=== PATIENT | female | born 2000 | race Caucasian/White ===

== ENCOUNTER 2018-09-20 07:30 | Inpatient (IN) | payer MEDICAID, SELFPAY ==
[2018-09-20 07:19] VITALS: BMI 28.5
[2018-09-20] MEDS: Lactated Ringers 1,000 ML 50 ML IV ×3 (07:45→11:42)
[2018-09-20 08:02] LABS: Mean Corp Hgb Conc 32.4 g/gl (32-36); Mean Corpuscular Hgb 29.6 pg (27.0-32.0); Mean Corpuscular Volume 91.4 fL (81-99); Mean Platelet Vol. 11.7 fl (6.2-12.0); Platelet Count 156 K/mm3 (150-450); RBC Distribution Width CV 15.6 % (11.6-14.6); RBC Distribution Width SD 52.2 fl (35.1-43.9); Red Blood Count 4.05 M/mm3 (4.2-5.4)
[2018-09-20 08:03] LABS: Scan Indicated on CBC? Y/N NO
--- NOTE | 2018-09-20 08:13 | PCM.HP.OB ---
History Date of Admission: 09/20/18 Final EILEEN: 09/15/18 Gestational age: 40 Weeks and 5 Days History of this : This is a 18 year-old, G [], P [], at 40 weeks gestational age. Allergies No Known Allergies Allergy (Verified 09/20/18 07:21) Home Medications: Home Medications Iron 09/20/18 Tablet 1 tab PO DAILY 09/20/18 Smoking Status: Never smoker Heart Tracin with mod variability, accels TOCO Analysis: Q 2-5 min History Past Pregnancies: Past Pregnancies Delivery Date Name GA/Weeks Outcome Route Weight Infant Gender Labor Length Anesthesia Delivery Location Provider FOB Labs: GBS negative see [facility] H&P Physical Exam General: Alert, Oriented x3 Abdomen: Soft, Non Tender, Non-Distended, Gravid Station: -2 Effacement (%): 80 Assessment/Plan This is a 18 year-old, @ 40&5 in labor Admit to L&D Expectant management GBS negative Pain - epidural when desired EFW less than 4500g, patient with adequate pelvis Routine care
[2018-09-20] MEDS: fentaNYL-bupivacaine (epidural) 100 ML BAG EPIDURAL (09:00)
[2018-09-20] MEDS: Ondansetron 4 MG/2 ML Vial IV (10:11)
--- NOTE | 2018-09-20 10:22 | PCM.PN.BLA ---
Progress Note S: Patient comfortable with epidural O: cvx - 6/80/-2 fhts 135 with mod variability, accels tocos Q2-3 min A&P: continue expectant management
--- NOTE | 2018-09-20 13:33 | PCM.OB.VAG ---
Vaginal Delivery Maternal Presentation: Active Labor Amniotic Membrane Rupture Type: Artificial Amniotic Fluid Description: Clear Final EILEEN: 09/15/18 Gestational age: 40 Weeks and 5 Days Date of Procedure: 09/20/18 Pre-Operative Diagnosis: Labor Post-Operative Diagnosis: Labor Surgery/ Procedure Performed: Spontaneous Vaginal Delivery Type of Anesthesia: Epidural Description of Procedure: Called to room when patient c/c/+2. Patient prepped & draped in stirrups. She pushed to deliver head. Double nuchal cord clamped & cut. With next push shoulders & body delivered easily. placed on maternal abdomen. Placenta delivered with gentle traction. Good uterine tone obtained. Presentation: VASHTI Placenta Disposition: [facility] Cord Vessel Description: 3 Vessels Cord Entanglement: Around neck x 2, tight Estimated Blood Loss: 200ml Infant A gender: Female (1 minute): 8 (5 minute): 9 Episiotomy Description: None Laceration: None Medications given after delivery: IV Pitocin Complications: None
[2018-09-20] MEDS: Oxytocin 30 units/NS 500 ml 30 UNITS/500 ML IV.SOLN 334 UNITS IV (14:00)
[2018-09-20] MEDS: Oxytocin 30 units/NS 500 ml 30 UNITS/500 ML IV.SOLN 167 UNITS IV (14:30)
[2018-09-20] MEDS: Ibuprofen 600 MG Tablet PO (16:45)
[2018-09-20 20:20] VITALS: BP 100/61; PULSE 84; RESP 16; TEMP 36.6; O2SAT 97
[2018-09-21 00:11] VITALS: BP 89/48; PULSE 70; RESP 16; TEMP 36.6; O2SAT 98
[2018-09-21 04:10] VITALS: BP 97/49; PULSE 65; RESP 16; TEMP 36.9; O2SAT 99
[2018-09-21] MEDS: Ibuprofen 600 MG Tablet PO (04:19)
--- NOTE | 2018-09-21 08:41 | DCINST_ITS ---
Discharge Diet: No Restrictions Discharge Activity: Return to Normal Activity, May not drive while taking narcotic pain medications., May Shower May resume sexual activity in: 4-6 weeks Additional Activity Instructions:: Nothing in the vagina for 4-6 weeks. You may return to work/school in 6 weeks. Call your doctor if your incision/area has: Continuous Slow Oozing, Sudden Increased Bleeding, Increased Pain/ Swelling, Increased Redness, Foul Smelling Discharge Call your doctor if you observe: Fever of 101 or Higher, Inability to urinate, Inability to have a bowel movement, Using more than one pad per hour Additional Instructions: If you experience any of the following, contact your healthcare provider. * Bleeding that soaks a pad every hour for 2 hours * Fever 100.4 or higher * Unrelieved incision or abdominal pain * Swelling, redness, discharge or bleeding from your incision or episiotomy site * Your incision begins to separate * Problems urinating (including inability to urinate or burning while urinating). * Visual changes * Severe headache * Flu-like symptoms * Pain or redness in one of both of your breasts * Pain, warmth, tenderness or swelling in your legs, especially the calf area * Frequent nausea and vomiting * Symptoms of depression or anxiety If you experience any of the following, call 911 or go to the nearest Emergency Room. * Chest pain * Problems breathing * Seizure activity * Partial or complete paralysis of a body part, slurred speech, weakness or drooping of the face, or a sudden inability to walk or hold your balance Allergies/Adverse Reactions: Allergies No Known Allergies Allergy (Verified 09/20/18 07:21) Medications to take at Discharge Iron 09/20/18 Tablet 1 tab PO DAILY 09/20/18 Please Follow Up With: Antonella Rice CNM When: Call to make an appointment with your provider at 2 weeks and 6 weeks. If you had elevated Blood Pressure or 4th degree laceration you will need to be seen in 2 weeks. Primary Care Physician: Care Physician,No Primary [Primary Care Provider] - Test Results: Test results from this visit will be discussed in further detail at your follow- up appointment, if applicable. Proposed Discharge Date: 09/21/18
--- NOTE | 2018-09-21 08:41 | PCM.PN.OB ---
Subjective: Patient laying down in bed, denies any issues or concerns at this time. Patient reports no issues with urination or ambulation. Denies LUU, scotoma or dizziness. Reports desire to be discharged to home today. Objective: Nipples without cracks, blisters. Breasts soft and filling. Abdomen NT x 4 quadrants, FF midline @ umbilicus +2/4 reflexes in LE, no edema noted, negative calf tenderness BL scant rubra lochia, perineum well approximated - Physical Exam General: Alert, Oriented x3, Cooperative HEENT: Atraumatic, Normocephalic Neck: Supple Lungs: Clear to auscultation, Normal air movement Cardiovascular: Regular rate, No murmurs Abdomen: Soft, Non Tender, Non-Distended Extremities: No edema, Capillary Refill Less than 3 Seconds Skin: No rashes, No breakdown Musculoskeletal: No Tenderness to Palpation of Joints or Extremities Neurological: Cranial nerves II-XII grossly intact Psych/Mental Status: Normal Affect, Appropriate Vital Signs Temp Pulse Resp BP Pulse Ox 98.4 F 65 16 97/49 L 99 09/21/18 04:10 09/21/18 04:10 09/21/18 04:10 09/21/18 04:10 09/21/18 04:10 Oxygen Delivery Method Room Air Weight: 161 lb 6 oz Body Mass Index (BMI) 28.5 Intake and Output for Last 24 Hours 09/19/18 09/20/18 09/21/18 23:59 23:59 23:59 Output Total 1000 / 1000 Balance -1000 / -1000 Laboratory Tests Past 24 Hrs 09/20/18 07:45 Blood Type O POSITIVE Antibody Screen NEGATIVE Medical Necessity - Tobacco Use Smoking Status: Never smoker Assessment/Plan 18 y/o now, s/p , PPD #1, Normal PP Course P: 1) Discharge to home pending discharge 2) Anticipatory PP teaching done 3) RTC in 2 weeks and 6 week PP to [facility] Antonella BELL
[2018-09-21 09:00] VITALS: BP 106/70; PULSE 70; RESP 18; TEMP 36.6
[2018-09-21 12:55] VITALS: BP 100/64; PULSE 77; RESP 18; TEMP 36.2
--- NOTE | 2018-09-21 15:30 | CASEMGMT ---
Social Work Brief Assessment - Labor and Delivery Unit Refer documentation below for further details. Date of Referral/Notification: 09/20/2018 Time of Referral: 1818 Referred By: Dr. Bishop Reason for Referral: maternal history of depression Date of Intervention: 09-21-18 Time of Intervention: 1530 Informant: Medical record and mother of baby (MOB) Evelyne Barraza History: MOB is a 18-year-old female admitted and delivered a baby girl, Raj Barraza. MOB is g2, p1 to 2 after delivering Raj. [place] baby weighed 7 pounds 6 ounces a , ?s 8 and 9 at 1 and 5 minutes of life. Father of baby (FOB) is Bashir Ruff, MOB?s of 1 year. FOB is not the biological father to MOB?s oldest child, a daughter named Barbara (born 02[birth year]18[birth year]16). MOB reports Barbara?s father is not involved. care is reported to have started in [place] at 10 weeks gestation. MOB and FOB back to [facility] and MOB started care in [place] at 21 weeks gestation. MOB reports to have all needed supplies for baby including car seat, bassinet for sleeping, diapers, wipes, bottles and formula. MOB reports home situation is safe and adequate, denies any safety concerns in the home, as well as denies any form of abuse in relationship with FOB. MOB reports to have transportation, connected with [facility] and has an appointment on Monday09-26-18. MOB has food and medical through [facility]. MOB denies past or present with children services in [place] or [place]. MOB does endorse history of depression and depression, no medication or treatment for such and report this lasted a short time. MOB denies any history of suicidal ideation. MOB denies any history of drug or alcohol use in , nor any history of substance use issues outside of . No drug screens found in parental record, nor at delivery. Assessment: MOB cooperative with social work visit, affect constricted, answers to the point though polite. MOB attentive to baby and reports to hope to go home today. MOB reports to have needed supplies, FOB will be home from work for the weekend and then MOB?s and FOB?s families are available to help as needed. MOB accepting of information on Early Head start program; declines referral to [facility]. MOB denies any needs or concerns for home going, reports to feel good about this baby. MOB attentive to baby during social work visit, gentle and appropriate. No concerns voiced by nursing staff regarding mother/child interaction. MOB aware of safe sleeping, shaken baby prevention, and depression. Educated importance of self-care and seeking out help and support should symptoms arise after home going. Plan: MOB and baby to home. MOB has been given information on depression including local and online supports. [facility] secondary social studies teacher resource list provided as well. No further needs requested or indicated. -GEN Hdez, MANAGER REVENUE
--- NOTE | 2018-10-01 12:23 | NURSING ---
1230 Called Evelyne but not available and no voicemail in place to leave a message. Davon MUNOZ IBCLC
--- OUTSIDE RECORDS SUMMARY | 2018-11-24 19:26 | XMS RPT_ITS ---
:2000 Author Organization OHIP Care Team Providers Name Role Phone RODOLFO DIALLO (CNM) Attending Unavailable DUOGLAS KOHLI Attending Unavailable CATE SCRUGGS Referring Unavailable ANNABEL, ANTONELLA (CNM) Attending Unavailable ANNABEL, ANTONELLA (CNM) Attending Unavailable ANNABEL, ANTONELLA (CNM) Referring Unavailable ANNABEL, ANTONELLA (CNM) Referring Unavailable ANNABEL, ANTONELLA (CNM) Attending Unavailable ANNABEL, ANTONELLA (CNM) Attending Unavailable ANNABEL, ANTONELLA (CNM) Attending Unavailable ANNABEL, ANTONELLA (CNM) Referring Unavailable ANNABEL, ANTONELLA (CNM) Attending Unavailable ANNABEL, ANTONELLA (CNM) Attending Unavailable ANNABEL, ANTONELLA (CNM) Attending Unavailable ANNABEL, ANTONELLA (CNM) Attending Unavailable ANNABEL, ANTONELLA (CNM) Attending Unavailable ANNABEL, ANTONELLA (CNM) Attending Unavailable Primay Care Physicia, No Primary Care Unavailable Sandeep Fisher Admitting Unavailable Sandeep Fisher Attending Unavailable Sandeep Fisher Referring Unavailable Alison Ca Admitting Unavailable Alison Ca Attending Unavailable Alison Ca Referring Unavailable Primay Care Physicia, No Primary Care Unavailable PROBLEMS PROBLEMS DATE TYPE CONDITION / CODE ATTENDING STATUS SOURCE 07/23/2018 Active Anemia NA Active [facility] complicating [facility] , third Repository trimester / O99.013(ICD-10) 06/11/2018 Active 26 weeks gestation NA Active [facility] of / [facility] Z3A.26(ICD-10) Repository 06/11/2018 Active Encounter for NA Active [facility] screening for [facility] diabetes mellitus Repository / Z13.1(ICD-10) PROCEDURES PROCEDURES No Procedure Records FoundRESULTS RESULTS DISCHARGE INSTRUCTION Observed: 09/21/2018 Status: F Source: [place] 8:41 AM [facility] REPOSITORY [facility] Medical Records Department [address] [place] [address] Instructions for Home/Discharge Instructions 09/21/18 0840 MR#: [id number] Acct: [id number] Name: LANCE BARRAZA Rep #: [id number] : 2000 From: Antonella Rice CNM PCP: Care Physician, No Primary Status: ADM IN Discharge Diet: No Restrictions Discharge Activity: Return to Normal Activity, May not drive while taking narcotic pain medications., May Shower May resume sexual activity in: 4-6 weeks Additional Activity Instructions:: Nothing in the vagina for 4-6 weeks. You may return to work/school in 6 weeks. Call your doctor if your incision/area has: Continuous Slow Oozing, Sudden Increased Bleeding, Increased Pain/ Swelling, Increased Redness, Foul Smelling Discharge Call your doctor if you observe: Fever of 101 or Higher, Inability to urinate, Inability to have a bowel movement, Using more than one pad per hour Additional Instructions: If you experience any of the following, contact your healthcare provider. * Bleeding that soaks a pad every hour for 2 hours * Fever 100.4 or higher * Unrelieved incision or abdominal pain * Swelling, redness, discharge or bleeding from your incision or episiotomy site * Your incision begins to separate * Problems urinating (including inability to urinate or burning while urinating). * Visual changes * Severe headache * Flu-like symptoms * Pain or redness in one of both of your breasts * Pain, warmth, tenderness or swelling in your legs, especially the calf area * Frequent nausea and vomiting * Symptoms of depression or anxiety If you experience any of the following, call 911 or go to the nearest Emergency Room. * Chest pain * Problems breathing * Seizure activity * Partial or complete paralysis of a body part, slurred speech, weakness or drooping of the face, or a sudden inability to walk or hold your balance Allergies/Adverse Reactions: Allergies No Known Allergies Allergy (Verified 09/20/18 07:21) Medications to take at Discharge Iron 09/20/18 Tablet 1 tab PO DAILY 09/20/18 Please Follow Up With: Antonella Rice CNM When: Call to make an appointment with your provider at 2 weeks and 6 weeks. If you had elevated Blood Pressure or 4th degree laceration you will need to be seen in 2 weeks. Primary Care Physician: Care Physician,No Primary [Primary Care Provider] - Test Results: Test results from this visit will be discussed in further detail at your follow-up appointment, if applicable. Proposed Discharge Date: 09/21/18 09/21/18 0841 <Electronically signed by Antonella Rice CNM> Date Antonella Rice CNM CC: No Primary Care Physician Signed PROGRESS Observed: 09/20/2018 Status: COMPLETED Source: [place] 4:23 PM [facility] REPOSITORY O ID: [id number] Author: Trina Diaz LPN Service: (none) Author Type: (none) Type: Progress Notes Filed: 09/20/2018 4:24 PM Note Text: Pt delivered via at [facility] on 09/20/[address] Fisher. See Ob Outcome note. Trina Diaz LPN OPERATIVE REPORT Observed: 09/20/2018 Status: F Source: [place] 2:10 PM [facility] REPOSITORY [facility] Medical Records Department [address] [place] [address] Operative Report 09/20/18 1333 MR#: [id number] Acct: [id number] Name: LANCE BARRAZA Rep #: [id number] : 2000 18 From: Sandeep Fisher PCP: Care Physician, No Primary Status: ADM IN Location: [id number] Vaginal Delivery Maternal Presentation: Active Labor Amniotic Membrane Rupture Type: Artificial Amniotic Fluid Description: Clear Final EILEEN: 09/15/18 Gestational age: 40 Weeks and 5 Days Date of Procedure: 09/20/18 Pre-Operative Diagnosis: Labor Post-Operative Diagnosis: Labor Surgery/ Procedure Performed: Spontaneous Vaginal Delivery Type of Anesthesia: Epidural Description of Procedure: Called to room when patient c/c/+2. Patient prepped AND draped in stirrups. She pushed to deliver head. Double nuchal cord clamped AND cut. With next push shoulders AND body delivered easily. placed on maternal abdomen. Placenta delivered with gentle traction. Good uterine tone obtained. Presentation: VASHTI Placenta Disposition: [facility] Cord Vessel Description: 3 Vessels Cord Entanglement: Around neck x 2, tight Estimated Blood Loss: 200ml Infant A gender: Female (1 minute): 8 (5 minute): 9 Episiotomy Description: None Laceration: None Medications given after delivery: IV Pitocin Complications: None 09/20/18 1410 <Electronically signed by Sandeep Fisher > Date Sandeep Fisher CC: No Primary Care Physician; Sandeep Fisher Signed HISTORY AND PHYSICAL Observed: 09/20/2018 Status: F Source: [place] EXAM 8:20 AM [facility] REPOSITORY [facility] Medical Records Department [address] [place] [address] History and Physical 09/20/18 08 MR#: [id number] Acct: [id number] Name: LANCE BARRAZA Rep #: [id number] : 2000 18 From: Sandeep Fisher PCP: Care Physician, No Primary Status: ADM IN Location: [id number] History Date of Admission: 09/20/18 Final EILEEN: 09/15/18 Gestational age: 40 Weeks and 5 Days History of this : This is a 18 year-old, G [], P [], at 40 weeks gestational age. Allergies No Known Allergies Allergy (Verified 09/20/18 07:21) Home Medications: Home Medications Iron 09/20/18 Tablet 1 tab PO DAILY 09/20/18 Smoking Status: Never smoker Heart Tracin with mod variability, accels TOCO Analysis: Q 2-5 min History Past Pregnancies: Past Pregnancies Delivery Name GA/Weeks Outcome Route WeiInfant GeLabor LenAnesthesiDelivery Provider FOB Date ght nder [facility] a Location Labs: GBS negative see [facility] H AND P Physical Exam General: Alert, Oriented x3 Abdomen: Soft, Non Tender, Non-Distended, Gravid Station: -2 Effacement (%): 80 Assessment/Plan This is a 18 year-old, @ 40 AND 5 in labor Admit to L AND D Expectant management GBS negative Pain - epidural when desired EFW less than 4500g, patient with adequate pelvis Routine care 09/20/18 0820 <Electronically signed by Sandeep Fisher > Date Sandeep Fisher Cosigner Signature: Date (if applicable) CC: No Primary Care Physician; Sandeep Fisher Signed CBC-COMPLETE BLOOD CNT Collected: 09/20/2018 Status: F Source: [place] 7:45 AM [facility] REPOSITORY TYPE CODE TESTS RESULT OUT OF RANGE REFERENCE UNITS LAB L100.1000 4.4-11.0 K/mm3 High WBC 14.0 LAB L100.1200 4.2-5.4 M/mm3 Low RBC 4.05 LAB L100.1300 12.0-15.0 g/dl Normal HGB 12.0 LAB L100.1400 37-47 % Normal HCT 37.0 LAB L100.1500 81-99 fL Normal MCV 91.4 LAB L100.1600 27.0-32.0 pg Normal MCH 29.6 LAB L100.1700 32-36 g/gl Normal MCHC 32.4 LAB L100.1810 11.6-14.6 % High RDW CV 15.6 LAB L100.1820 35.1-43.9 fl High RDW SD 52.2 LAB L100.1900 150-450 K/mm3 Normal PLT 156 LAB L100.2000 6.2-12.0 fl Normal MPV 11.7 Performed By: #### L100.0500 #### [facility] [address] [place], [address] TYPE AND SCREEN Collected: 09/20/2018 Status: F Source: [place] 7:45 AM [facility] REPOSITORY Order Comment: Reason for Type AND Screen/Red Cells: ROUTINE TYPE CODE TESTS RESULT OUT OF RANGE REFERENCE UNITS LAB B10.0800 O Normal BLOOD TYPE GEL POSITIVE LAB B100.4000 Normal Antibody NEGATIVE Screen Performed By: #### B101.7450 #### [facility] [address] [place], [address] PROGRESS Observed: 09/19/2018 Status: COMPLETED Source: [place] 4:49 PM [facility] REPOSITORY HNO ID: [id number] Author: Antonella Rice Service: (none) Author Type: Tonger Type: Progress Notes Filed: 09/19/2018 4:50 PM Note Text: CM - S: Lance Barraza presents for a routine OB visit at 40w4d. She denies LOF, VB, DFM or cramping/contractions. May have lost mucus plug last . Patient desires discussion today to plan for IOL - patient will be postdates 41 weeks this . O: See flow sheet Gen: A+O x 3, NAD Abdomen: NT x 4 quadrants, S=D, Baby CHERELLE by Alf's Extremities: No edema in LE SVE: 470/-2 after membrane sweep A/P: 40w4d IUP. Normal . RTO PRN Weeks for follow up. Call with LOF, VB, DFM or cramping/contractions. 1. 40 weeks gestation of -Labor precautions reviewed, [facility] teaching -IOL scheduled for Monday09/22/18 if undelivered - anticipate AROM/Pitocin Induction - URINE OB DIP B/O Antonella Rice APRN.CNM PROGRESS Observed: 09/13/2018 Status: COMPLETED Source: [place] 5:50 PM [facility] REPOSITORY HNO ID: [id number] Author: Antonella Rice Service: (none) Author Type: Tonger Type: Progress Notes Filed: 09/13/2018 5:50 PM Note Text: CM - S: Lance Barraza presents for a routine OB visit at 39w5d. She denies LOF, VB, DFM or cramping/contractions. O: See flow sheet Gen: A+O x 3, NAD Abdomen: NT x 4 quadrants, Gravid, S=D, CHERELLE by Alf's, EFW = 7.5# Extremities: No edema in LE SVE: 2.5/60/-2, membrane sweep done today A/P: 39w5d IUP. Normal . RTO Weeks for follow up. Call with LOF, VB, DFM or cramping/contractions. 1. 39 weeks gestation of -Labor precautions reviewed, [facility] teaching done -Anticipate IOL by 41 weeks, plan to schedule IOL at n.v. in 1 week if undelivered. - URINE OB DIP B/O Antonella Rice APRN.CNM PROGRESS Observed: 09/07/2018 Status: COMPLETED Source: [place] 6:45 PM [facility] REPOSITORY HNO ID: [id number] Author: Antonella Rice Service: (none) Author Type: Tonger Type: Progress Notes Filed: 09/07/2018 6:46 PM Note Text: CM - S: Lance Barraza presents for a routine OB visit at 38w6d. She denies LOF, VB, DFM or cramping/contractions. O: See flow sheet Gen: A+O x 3, NAD Abdomen: NT x 4 quadrants, S=D, VASHTI by Alf's, EFW = 7# Extremities: No edema in LE SVE: 1/40/-3, no membrane sweep done today A/P: 38w6d IUP. Normal . RTO 1 Weeks for follow up. Call with LOF, VB, DFM or cramping/contractions. 1. 38 weeks gestation of -Labor precautions and [facility] teaching reviewed - URINE OB DIP B/O Antonella Rcie APRN.CNM PROGRESS Observed: 08/29/2018 Status: COMPLETED Source: [place] 8:21 PM [facility] REPOSITORY HNO ID: [id number] Author: Antonella Rice Service: (none) Author Type: Tonger Type: Progress Notes Filed: 08/29/2018 8:22 PM Note Text: CM - S: Lance Barraza presents for a routine OB visit at 37w4d. She denies LOF, VB, DFM or cramping/contractions. +1 protein noted; patient denies LUU, scotoma or RUQ pain. Patient declines SVE today. O: See flow sheet Gen: A+O x 3, NAD Abdomen: NT x 4 quadrants, S=D Extremities: No edema in LE A/P: 37w4d IUP. Normal . RTO 1 Weeks for follow up. Call with LOF, VB, DFM or cramping/contractions. 1. 37 weeks gestation of -Encourage increasing PO water consumption - 80 to 100 fl oz daily -[facility] teaching done -Labor Precautions reviewed - URINE OB DIP B/O Antonella Rice APRN.CNM PROGRESS Observed: 08/21/2018 Status: COMPLETED Source: [place] 12:06 PM [facility] REPOSITORY HNO ID: [id number] Author: Antonella Rice Service: (none) Author Type: Tonger Type: Progress Notes Filed: 08/21/2018 12:07 PM Note Text: CM - S: Lance Barraza presents for a routine OB visit at 36w3d. She denies LOF, VB, DFM or cramping/contractions. O: See flow sheet Gen: A+O x 3, NAD Abdomen: NT x 4 quadrants, S=D, Gravid, CHERELLE by Alf's Extremities: No edema in LE SVE: Deferred A/P: 36w3d IUP. Normal . RTO 1 Weeks for follow up. Call with LOF, VB, DFM or cramping/contractions. 1. 36 weeks gestation of -[facility] teaching done today, PTL precautions reviewed -GBS screening done - URINE OB DIP B/O - STREPTOCOCCUS B PCR Antonella Rice APRN.CNM GROUP B STREP PCR Collected: 08/21/2018 Status: F Source: [place] 11:45 AM [facility] REPOSITORY TYPE CODE TESTS RESULT OUT OF REFERENCE UNITS RANGE LAB GBPCRT Negative for GROUP Group B B STREP PCR Streptococcus by PCR. Performed By: #### GBPCR #### [facility] [address] [place], [place] [address] PROGRESS Observed: 08/06/2018 Status: COMPLETED Source: [place] 10:26 AM [facility] REPOSITORY HNO ID: [id number] Author: Antonella Rice Service: (none) Author Type: Tonger Type: Progress Notes Filed: 08/06/2018 10:43 AM Note Text: CM - S: Lance Barraza presents for a routine OB visit at 34w2d. She denies LOF, VB, DFM or cramping/contractions. O: See flow sheet Gen: A+O x 3, NAD Abdomen: NT x 4 quadrants, S=D. VASHTI by Alf's Extremities: No edema in LE A/P: 34w2d IUP. Normal . RTO 2 Weeks for follow up. Call with LOF, VB, DFM or cramping/contractions. 1. 34 weeks gestation of -[facility] teaching and PTL precautions reviewed - URINE OB DIP B/O 2. Need for vaccination -Tdap given today Antonella Rice APRN.CNM PROGRESS Observed: 08/06/2018 Status: COMPLETED Source: [place] 10:17 AM [facility] REPOSITORY HNO ID: [id number] Author: Prudence Whiting Ma Service: (none) Author Type: (none) Type: Progress Notes Filed: 08/06/2018 10:43 AM Note Text: Patient identified by name and date of . Lance Barraza presents today for a vaccination of Tdap. Patient denies an allergy to latex: yes Patient denies a severe (life-threatening) allergy to a previous dose of Tdap, DTP, DTaP, DT or Td vaccine. Yes Patient denies history of epilepsy or neurological problems: Yes Patient is afebrile and denies being moderately or severely ill: Yes Patient denies history of Guillain-Brooklyn Syndrome (a severe paralytic illness): Yes Tdap Adacel injection was given without incident. See immunizations for details of immunizations administered today. VIS sheet provided: Yes Provider Antonella Rice CNM was present in office at time of injection. Prudence Whiting Ma PROGRESS Observed: 07/23/2018 Status: COMPLETED Source: [place] 10:40 AM [facility] REPOSITORY HNO ID: [id number] Author: Antonella Rice Service: (none) Author Type: Tonger Type: Progress Notes Filed: 07/23/2018 10:43 AM Note Text: CM - S: Lance Barraza presents for a routine OB visit at 32w2d. She denies LOF, VB, DFM or cramping/contractions. Patient having occasional pelvic cramps and rectal spasms. Otherwise patient denies any complaints or concerns at this time. O: See flow sheet Gen: A+O x 3, NAD Abdomen: NT x 4 quadrants, S=D Extremities: No edema A/P: 32w2d IUP. Normal . RTO 2 Weeks for follow up. Call with LOF, VB, DFM or cramping/contractions. 1. Encounter for supervision of other normal in third trimester -[facility] teaching and PTL precautions reviewed - URINE OB DIP B/O 2. 32 weeks gestation of -Patient continues to decline flu vaccine - URINE OB DIP B/O Antonella Rice, REFERRAL MANAGER.NICK CBC AND DIFFERENTIAL Collected: 07/23/2018 Status: F Source: [place] 10:26 AM [facility] REPOSITORY TYPE CODE TESTS RESULT OUT OF REFERENCE UNITS RANGE LAB WBC 3.70-11.00 k/uL WBC 9.08 LAB RBC 3.90-5.20 m/uL Low RBC 3.42 LAB HGB 11.5-15.5 g/dL Low Hemoglobin 10.1 LAB HCT 36.0-46.0 % Low Hematocrit 31.9 LAB MCV 80.0-100.0 fL MCV 93.3 LAB MCH 26.0-34.0 pG MCH 29.5 LAB MCHC 30.5-36.0 g/dL MCHC 31.7 LAB RDWCV 11.5-15.0 % RDW-CV 13.4 LAB PLTCT 150-400 k/uL Platelet Count 150 LAB MPV 9.0-12.7 fL MPV 11.3 LAB ANEUT % Neut% 70.0 LAB AANEUT 1.45-7.50 k/uL Abs Neut 6.36 LAB ALYMP % Lymph% 24.7 LAB AALYMP 1.00-4.00 k/uL Abs Lymph 2.24 LAB AMONO % Grimes% 4.3 LAB AAMONO <0.87 k/uL Abs Grimes 0.39 LAB AEOS % Eosin% 0.7 LAB AAEOS <0.46 k/uL Abs Eosin 0.06 LAB ABASO % Baso% 0.3 LAB AABASO <0.11 k/uL Abs Baso 0.03 LAB AUNRBC 0 /100 WBC NRBCs 0.0 LAB ABNRBC <0.01 k/uL Absolute nRBC <0.01 LAB DTYP DTYPE Auto Diff Performed By: #### CBCDIF #### [facility] [address] [place], [place] [address] PROGRESS Observed: 07/09/2018 Status: COMPLETED Source: [place] 10:57 AM [facility] REPOSITORY HNO ID: [id number] Author: Antonella Rice Service: (none) Author Type: Tonger Type: Progress Notes Filed: 07/09/2018 10:58 AM Note Text: CM - S: Lance Barraza presents for a routine OB visit at 30w2d. She denies LOF, VB, DFM or cramping/contractions. Taking iron supplement q HS - tolerating it better now and feeling less nauseous. O: See flow sheet Gen: A+O x3, NAD Abdomen: NT x 4 quadrants, S=D Extremities: No edema in LE A/P: 30w2d IUP. Normal , Anemia of in 3rd trimester. RTO 2 Weeks for follow up. Call with LOF, VB, DFM or cramping/contractions. 1. 30 weeks gestation of -Continues to decline flu vaccine - benefits of flu vaccine discussed again -[facility] teaching and PTL precautions reviewed -Anticipatory health teaching re: - URINE OB DIP B/O 2. Anemia of in third trimester -Continue iron supplement as directed - CBC + DIFF; Future Antonella Rice APRN.CNM PROGRESS Observed: 06/26/2018 Status: COMPLETED Source: [place] 10:55 AM [facility] REPOSITORY HNO ID: [id number] Author: Antonella Rice Service: (none) Author Type: Tonger Type: Progress Notes Filed: 06/26/2018 10:56 AM Note Text: CM - S: Lance Barraza presents for a routine OB visit at 28w3d. She denies LOF, VB, DFM or cramping/contractions. Patient reports scant use of iron supplement - reports GI upset and increased n/v. O: See flow sheet Gen: A+O x 3, NAD Abdomen: NT x 4 quadrants, S=D Extremities: No edema in LE A/P: 28w3d IUP. Anemia of in 3rd trimester. RTO 2 Weeks for follow up. Call with LOF, VB, DFM or cramping/contractions. 1. with care elsewhere, antepartum - URINE OB DIP B/O 2. 28 weeks gestation of -[facility] teaching and PTL precautions reviewed - URINE OB DIP B/O 3. Anemia of , 3rd trimester -Increase dietary iron rich foods -Continue iron supplement as directed Antonella Rice APRN.CNM PROGRESS Observed: 06/11/2018 Status: COMPLETED Source: [place] 5:42 PM [facility] REPOSITORY HNO ID: [id number] Author: Antonella Zelaya) Annabel Service: (none) Author Type: Tonger Type: Progress Notes Filed: 06/11/2018 5:43 PM Note Text: CM - S: Lance Hutchins Madi presents for a routine OB visit at 26w2d. She denies LOF, VB, DFM or cramping/contractions. O: See flow sheet Gen: A+O x 3, NAD Abdomen: NT x 4 quadrants, S=D Extremities: No edema in LE A/P: 26w2d IUP. Normal . RTO 2 Weeks for follow up. Call with LOF, VB, DFM or cramping/contractions. 1. 26 weeks gestation of -[facility] teaching and PTL precautions -Declining flu shots - URINE OB DIP B/O - CBC + DIFF; Future - GEST GLUC SCREEN, 1-HR, 50 GM, NON-FASTING; Future 2. Encounter for screening examination for impaired glucose regulation and diabetes mellitus - 1 hour GCT done today - URINE OB DIP B/O - CBC + DIFF; Future - GEST GLUC SCREEN, 1-HR, 50 GM, NON-FASTING; Future Antonella Rice APRN.CNM SBIRT Lance Barraza was given the 's screening tool. Lance answered as follows: OB Opioid Screening - Last Recorded (since 09/14/2017) Did any of your parents have a problem with alcohol or other drug use? No Does your partner have a problem with alcohol or other drug use? No In the past, have you had difficulties in your life because of alcohol or other drugs, including prescription medications? No In the past month have you drunk any alcohol or used other drugs? No Are you taking medication for pain during the either prescribed or not? No Based on the screen and further questions, she is considered at Low risk due to:No past or current use. Positive reinforcement of current behavior. Antonella Rice APRN.CNM 50G, 1HR GEST. Collected: 06/11/2018 Status: F [facility] REPOSITORY TYPE CODE TESTS RESULT OUT OF REFERENCE UNITS RANGE LAB GLUP 74-134 mg/dL Glucose 96 Screen, Preg Result Comment: [place] [employer] (Leo/Tad) guidelines state a gestational diabetes mellitus positive screen is made, in women not previously diagnosed with overt diabetes, when the 1 hr plasma glucose level is equal to or above 140 mg/dL. [facility] Policy [employer] [facility] [employer] recommends a 135 mg/dL cutoff. Performed By: #### GLTGST #### [facility] [address] [place] [address] CBC AND DIFFERENTIAL Collected: 06/11/2018 Status: F Source: [place] 10:44 AM [facility] REPOSITORY TYPE CODE TESTS RESULT OUT OF REFERENCE UNITS RANGE LAB WBC 3.70-11.00 k/uL WBC 7.15 LAB RBC 3.90-5.20 m/uL Low RBC 3.23 LAB HGB 11.5-15.5 g/dL Low Hemoglobin 10.0 LAB HCT 36.0-46.0 % Low Hematocrit 32.0 LAB MCV 80.0-100.0 fL MCV 99.1 LAB MCH 26.0-34.0 pG MCH 31.0 LAB MCHC 30.5-36.0 g/dL MCHC 31.3 LAB RDWCV 11.5-15.0 % RDW-CV 13.4 LAB PLTCT 150-400 k/uL Platelet Count 164 LAB MPV 9.0-12.7 fL MPV 11.3 LAB ANEUT % Neut% 74.0 LAB AANEUT 1.45-7.50 k/uL Abs Neut 5.29 LAB ALYMP % Lymph% 22.5 LAB AALYMP 1.00-4.00 k/uL Abs Lymph 1.61 LAB AMONO % Grimes% 2.8 LAB AAMONO <0.87 k/uL Abs Grimes 0.20 LAB AEOS % Eosin% 0.4 LAB AAEOS <0.46 k/uL Abs Eosin 0.03 LAB ABASO % Baso% 0.3 LAB AABASO <0.11 k/uL Abs Baso <0.03 LAB AUNRBC 0 /100 WBC NRBCs 0.0 LAB ABNRBC <0.01 k/uL Absolute nRBC <0.01 LAB DTYP DTYPE Auto Diff Performed By: #### CBCDIF #### [facility] [address] [place], [place] [address] PROGRESS Observed: 05/22/2018 Status: COMPLETED Source: [place] 10:21 AM [facility] REPOSITORY HNO ID: [id number] Author: Antonella Rice Service: (none) Author Type: Tonger Type: Progress Notes Filed: 05/22/2018 10:39 AM Note Text: CM - S: Lance Barraza presents for a routine OB visit at 23w3d. She denies LOF, VB, DFM or cramping/contractions. Planning on epidural. O: See flow sheet Gen: A+O x 3, NAD Abdomen: Gravid, S=D. NT x 4 quadrants Extremities: No edema A/P: 23w3d IUP. Normal . RTO 4 Weeks for follow up. Call with LOF, VB, DFM or cramping/contractions. 1. Encounter for supervision of other normal in second trimester -[facility] and PTL precautions discussed - URINE OB DIP B/O 2. 23 weeks gestation of - 1 hour GCT at next visit - URINE OB DIP B/O CAMPOS Weeks Observed: 05/14/2018 Status: COMPLETED Source: [place] 12:00 AM [facility] REPOSITORY Letter Text [facility] [facility] [address] [place] [id number] 05/14/2018 RE: Lance Barraza : 2000 To Whom It May Concern: This is to verify that the above captioned patient is with a koehler interuterine pregnancyand her Estimated Date of Delivery: 09/15/18. Sincerely, Rodolfo Diallo CNM PROGRESS Observed: 05/11/2018 Status: COMPLETED Source: [place] 2:46 PM [facility] REPOSITORY HNO ID: [id number] Author: Alissa Diez RN Service: (none) Author Type: (none) Type: Progress Notes Filed: 05/11/2018 2:56 PM Note Text: Outside records received from [facility] in [place], [place]. Results reviewed by JOSELINE, faxed to [employer] and scanned into [employer]. Alissa Diez RN HOSP Observed: 05/11/2018 Status: COMPLETED Source: [place] 12:00 AM [facility] REPOSITORY Patient Update (WOOB) LANCE BARRAZA ([id number]) 2000 F Date Time Provider Department 05/11/18 RODOLFO DIALLO) WOOB During your visit today, we recorded the following information about you: Alissa Diez RN 05/11/2018 2:56 PM Signed Outside records received from [facility] in [place], [place]. Results reviewed by JOSELINE, faxed to [employer] and [employer] into [employer]. Alissa Diez RN Allergies As of Date: 05/11/2018 (No Known Allergies) Date Reviewed: 05/08/2018 Reviewed by: Rodolfo Zelaya) Yoel - Fully Assessed Reason for Visit: Received Outside Medical Records [[id number]] Prescriptions as of 05/11/2018 Sig: VITAMIN,CALCIUM,MINE* Take 1 tablet by mouth. Problem List As Of Date 05/11/2018 Noted Resolved Mononucleosis [B27.90] INVALID FOR*09/10/2013 Depression [F32.9] INVALID FOR* with care elsewhere, antepar*INVALID FOR* More... History of depression [Z87.59, Z86.5*INVALID FOR* More... Encounter Status:Closed by ALISSA DIEZ RN on 05/11/18 PROGRESS Observed: 05/09/2018 Status: COMPLETED Source: [place] 1:40 PM [facility] REPOSITORY HNO ID: [id number] Author: Douglas Kohli Service: (none) Author Type: Physician Type: Progress Notes Filed: 05/09/2018 1:43 PM Note Text: A koehler? fetus in utero with symmetric measurements Adequate growth (AGA). Estimated Date of Delivery: 09/15/18 EGA = 21w4d The anatomy appears normal. There are no evident malformations and /or effusions. No genetic markers are noted. The amniotic fluid volume is within normal limits. The patient was counseled as to the sonographic findings. The limitations of ultrasound in detecting malformations and chromosomal anomalies has been addressed. Body mass index is 24.8 kg/m?. RECOMMENDATIONS: - Follow up ultrasound as clinically indicated . TOXICOLOGY SCREEN,UR Collected: 05/08/2018 Status: F Source: [place] 9:20 AM [facility] REPOSITORY TYPE CODE TESTS RESULT OUT OF REFERENCE UNITS RANGE LAB UPCP2 Negative Negative Phencyclidin e, Urine Result Comment: Cutoff threshold at 25 ng/mL. LAB UBENZ2 Negative Benzodiazepines, Ur Negative Result Comment: Cutoff threshold at 200 ng/mL. LAB UCOC2 Negative Cocaine, Negative Urine Result Comment: Cutoff threshold at 300 ng/mL. LAB UAMPH2 Negative Amphetamines, Urine Negative Result Comment: Cutoff threshold at 1000 ng/mL. LAB UTHC2 Negative Cannabinoids, Urine Negative Result Comment: Cutoff threshold at 50 ng/mL. LAB UOPI2 Negative Opiates, Negative Urine Result Comment: Cutoff threshold at 300 ng/mL. LAB UBARB2 Negative Barbiturates, Urine Negative Result Comment: Cutoff threshold at 200 ng/mL. LAB UETOH <11 mg/dL <11 Ethanol, Urine LAB UOXYC Negative Oxycodone, Negative Urine Result Comment: Cutoff threshold at 100 ng/mL. Comment: Immunoassay screen only. Cross reactivity with other substances can occur with immunoassay screening. Detection of any drug(s) in this urine toxicology panel is presumptive only. These tests are for med ical purposes only and should not be used for compliance monitoring, legal, or forensic use. Samples should be within normal physiological conditions (e.g. pH). This assay does not include adulteration/specimen validity testing. In clinical settings, confirmatory testing is at the practitioner's discretion [1]. If clinically indicated, confirmation by high specificity, quantitative methodology, which includes adulteration/spec imen validity testing, may be requested on the same specimen through Client Services ([phone]) if contacted within 48 hours of initial testing. [1]Substance Abuse and Mental Health Services Administration (2012). Clinical Drug Testing in Primary Care Technical Assistance Publication Series 32. Department of Health and Human Services, [place], p.10. These tests were developed and their performance characteristics determined by [facility] ([facility]). They have not been cleared or a pproved by the FDA. [facility] is regulated under CLIA as qualified to perform high complexity testing. These tests are used for clinical purposes. They should not be regarded as investigational or for research. Performed By: #### UTOX2 #### [facility] [address] [place], [place] [address] PROGRESS Observed: 05/08/2018 Status: COMPLETED Source: [place] 9:05 AM [facility] REPOSITORY O ID: [id number] Author: Rodolfo Diallo Service: (none) Author Type: Tonger Type: Progress Notes Filed: 05/08/2018 9:48 AM Note Text: INITIAL OB ASSESSMENT OB Provider: Rodolfo Diallo CNM HPI: Lance Barraza is a 17 year old female here to establish Obstetrical Care. Patient's last menstrual period was 12/09/2017 (exact date). from OB Dating Form. Cycle length: 30 days Complaints: None. Feeling movement. Denies any signs of PTL. was planned. Obstetric History T1 L1 SAB0 TAB0 Ectopic0 Multiple0 Live Births1 Prior : never History of 4th degree laceration: No Patient's Risk Screening for delivery: History of abnormal pap: No Prior treatment for cervical dysplasia: none. History of STDs: None Tobacco use: No Caffeine use: Yes Drug use: No Alcohol use: No Multivitamin with Folic acid: Yes Occupation: Unemployed Denominational or heritage: No Would refuse blood transfusion if medically necessary: No BMI 24.80 kg/(m2) Patient BMI over 30? No Marital Status: Partner: Name: Krista Shea Age: 16 Occupation: [employer] Gender: male History of STDs: None PAST MEDICAL HISTORY Diagnosis Date - Depression 01/17/2014 - Menarche 2011 Age 10 - NEGATIVE HISTORY OF 04/2014 Normal Color Vison - NEGATIVE MEDICAL HISTORY PAST SURGICAL HISTORY Procedure Laterality Date - NONE Current Outpatient Prescriptions on File Prior to Visit: Jvxqewrj-Ig-Bys-Fe-FA ( VITAMIN) tab Take 1 tablet by mouth. sertraline (ZOLOFT) 50 mg tablet Take 1 tablet by mouth once daily. (Patient not taking: Reported on 05/03/2018 ) COMPOUNDED PRESCRIPTION Using excedrin as needed No current facility-administered medications on file prior to visit. Review of Systems: GENERAL: Negative for: Fever or Chills HEENT: Negative for: Impaired Vision, Ringing in Ears, Nosebleeds. Headaches intermittently, no visual changes, had headaches prior to . NECK: Negative for: Swelling, Pain, Stiffness RESPIRATORY: Negative for: Cough, Shortness of breath, Wheezing GASTROINTESTINAL: Negative for: Heartburn, Constipation, Diarrhea, Blood in stool, Vomiting MUSCULOSKELETAL: Negative for: Muscle or joint pain, stiffness, Joint swelling NEUROLOGIC/PSYCHIATRIC: Negative for: Weakness, Paralysis, Numbness, Tingling, Tremor, Anxiety, Depression, Memory loss SKIN: Negative for: Rash, Itching GENITOURINARY: Negative for: vaginal itching, vaginal discharge, hematuria or dysuria PHYSICAL EXAM: BP 98/60 Ht 5' 3 (1.60m) Wt 140 lb (63.5kg) LMP 12/09/2017 BMI 24.81 kg/(m2). GENERAL: pleasant female in no apparent distress DERMATOLOGY: Normal, without lesions, non-icteric and non-hirsute NECK: Supple and full range of motion CHEST: Clear to auscultation Normal inspiratory effort Regular rate and rhythm No murmurs, clicks, rubs or gallops BREAST: deferred ABDOMEN: soft, non-tender and no masses NEURO: alert and oriented x3,exam grossly non-focal PELVIS: Deferred Clinical Pelvimetry: Deferred Limited OB ultrasound exam: not performed ASSESSMENT: 17 year old at 21w3d gestational age PLAN: 1) Patient oriented to practice. Discussed nutrition, folic acid supplementation, dietary guidelines, exercise, smoking, alcohol, caffeine, and drug use. Will review records once received and update labs if needed. 2) Request signed and faxed for records release. Transfer of care from [facility] in [place]. 3) Anatomy U/S tomorrow 4) Urine tox screen today Follow up in 2 weeks or sooner sachinn. Rodolfo Diallo APRN.CNM PROGRESS Observed: 05/03/2018 Status: COMPLETED Source: [place] 2:47 PM [facility] REPOSITORY HNO ID: [id number] Author: Nereida Romero RN Service: (none) Author Type: (none) Type: Progress Notes Filed: 05/03/2018 2:55 PM Note Text: #: 1, Date: 02/18/16, Sex: Female, Weight: 8 lb 1 oz (3.657 kg), GA: 41w0d, Delivery: Vaginal, Spontaneous Delivery, Apgar1: None, Apgar5: None, Living: Living, Comments: Induced due to post dates #: 2, Date: None, Sex: None, Weight: None, GA: None, Delivery: None, Apgar1: None, Apgar5: None, Living: None, Comments: None CNNURSE Observed: 05/03/2018 Status: COMPLETED Source: [place] 2:30 PM [facility] REPOSITORY Nurse Visit (WOOB) LANCE BARRAZA ([id number]) 2000 F Date Time Provider Department 05/03/18 2:30 PM NURSE PNOB [facility] WOOB During your visit today, we recorded the following information about you: Last Period 12/09/17 Nereida Romero RN 05/03/2018 2:30 PM Signed SEQUENTIAL SCREENINGS The [facility] offers sequential screenings for women who are interested in screenings for chromosomal abnormalities and certain defects during a . The sequential screen combines ultrasound and blood tests to determine the risk of chromosomal abnormalities, including Down's Syndrome (Trisomy 21) and Trisomy 18, as well as open neural tube defects including spina bifida. Ultrasound examination is performed between 11 weeks and 13 weeks gestational age. Blood tests are drawn after the ultrasound and again later in the between 15 and 21 weeks gestational age. Please let your physician know if you are interested in this testing. It will require an appointment with our donor center technician. This is not an ultrasound performed by a physician in our office during a routine visit. SIGNS AND SYMPTOMS OF LABOR 1. Contractions every 10 minutes or more often 2. Clear, pink, or brownish fluid (water) leaking from vagina 3. Feeling that baby is pushing down, pressure 4. Low, dull backache 5. Cramps that feel like a period 6. Cramps with or without diarrhea If you notice any of the above symptoms, contact our office at [phone] and ask to speak with a nurse. After hours, you can call doctors registry at [phone] OR call [facility] at [phone] and ask to have the doctor flooring professional paged. If you consider this an emergency, dial 9-1-1 or go to your nearest emergency department. Cord-Blood Banking Up until recently, the umbilical cord--along with the blood that remained in it after a baby was born and the cord cut--was simply discarded by the hospital. Then, in the late 1980s, researchers discovered that cord blood possessed unusual properties that made it useful in the treatment of patients with some cancers and other illnesses. While the actual process of collecting cord blood is straightforward, many parents are not even aware that this option now exists, much less familiar with all the issues involved. The case for saving your baby's cord blood The blood running back and forth between your baby and the placenta is full of immature cells called stem cells. Unlike embryonic stem cells, which have the ability to develop into any type of body cell, cord-blood stem cells already are locked into a certain, vital function: making all the different components of the blood, such as platelets, white blood cells, and red blood cells-serving, in effect, like bone marrow. When transfused into a patient whose own blood cells have faulty genetic coding or have been destroyed by chemotherapy or other cancer treatments, the cord-blood cells can implant themselves in the bone marrow and generate legions of new, healthy cells. These days, cord-blood transplants most commonly are used in cancer patients when a donor can't be found for a bone-marrow transplant. The treatment is particularly effective in young patients-the [facility] Cord Blood Bank reports a 70 percent success rate in children, but only 20 to 40 percent in adults. Researchers envision improving those odds and see many future applications as well, such as curing sickle cell disease and other blood-related genetic illnesses. So there is a possibility that your child, or someone else, may need these super-healthy and versatile cells one day. The drawbacks Aside from not knowing about this medical option, the main reason most people do not save their baby's stem cells is cost. In a private blood bank, the initial costs run from $275 to $1,500. Most also charge a yearly storage fee of $50 to $95. The advantage of using a private bank is that your sample is saved for only you to use. An alternative to private banking Public cord-blood arteaga are an alternative. These cost no money to use, but your sample is not specifically saved for you. Another person with a more immediate need may use it. If the time should come that you need stem cells, yours may still be available, or you may use donations from other people without charge. You also can direct your sample to go to a relative with an immediate need if the blood type matches. Anyone else needing to use stem cells from a public bank who has not been a donor must pay for it, sometimes tens of thousands of dollars. Will my family benefit from saving stem cells? Right now, situations in which stem cells would be helpful are quite rare. As mentioned earlier, stem-cell transplants are most commonly used for rare genetic conditions and for some types of cancer, including leukemia and lymphoma. And even with these present uses, many questions remain. In cancer treatment, for example, some researchers are concerned about the wisdom of transplanting back into the child the same cells that already showed a propensity to become malignant. Doctors also aren't sure if the number of cells taken at the time of would be enough to treat a full-grown 16-year-old. It is also not completely clear how active the cells would be after years of being stored. The treatment is so new and rare, we just don't have the data yet to resolve these important issues. What do the experts say? The [employer] encourages philanthropic blood banking in public arteaga, but only for families with a current or potential need. Blood-bank proponents encourage any kind of banking, pointing out that research is getting closer and closer to many diverse, live-saving applications. How do I decide? Each family must weigh the pros and cons for themselves. Some families say that any cost is worth their peace of mind. Others say that in the face of uncertainty about the effectiveness of the treatment, they will use their resources elsewhere. Some choose the middle ground of donating publicly, knowing that their sample might benefit another family, if not themselves. For more information, ask your doctor or nurse, and be sure to check out our article on the technical aspects of cord-blood banking. Technical Aspects of Cord-Blood Banking If you are interested in storing your baby's umbilical-cord blood because of its possible use in emerging medical treatments, you must make arrangements with a blood bank before your child is born. The collection procedure is quite simple: After delivery of the baby, the umbilical cord is clamped and cut in the usual way. The blood that remains in the umbilical-cord vessels is then collected in sterile containers. The blood may be removed from the cord with a large needle or allowed to flow freely, depending on the company's collection system. The containers may look like large test tubes or like the plastic bags used in a blood bank. It does not cause the mother or the baby any pain to collect the blood, and no blood is taken that the baby needs at the moment. The nurse, blood or blood bank technician, or physician will then label the samples, check them over with you, and package them for a special pickup arranged with a commercial carrier. When the blood arrives at the blood-bank facility, it is processed and the parents are notified. It is then kept in an advanced storage system for years. How do I know that my sample is safe? Power outages and bankruptcies potentially could threaten any organization, but so far none have been reported. It is to be hoped that the scientists in these arteaga would arrange for safe transfer to another facility if the need arose. YOU MUST MAKE ARRANGEMENTS AHEAD OF TIME! Public cord-blood arteaga--DONATION: [employer] [phone] [facility]'s Placental Blood Program, [facility] Umbilical Cord Blood Bank, Private cord-blood arteaga--SAVING FOR YOUR OWN USE: [employer], (I think this is the least expensive) [employer] [phone] [employer], (436) [employer] [place] [facility], [phone], [phone] [place] [facility], Cord Blood Registry, (820) [employer], An Internet search may provide you with additional listings. Nereida Romero RN 05/03/2018 2:55 PM Signed #: 1, Date: [birth year], Sex: Female, Weight: 8 lb 1 oz (3.657 kg), GA: 41w0d, Delivery: Vaginal, Spontaneous Delivery, Apgar1: None, Apgar5: None, Living: Living, Comments: Induced due to post dates #: 2, Date: None, Sex: None, Weight: None, GA: None, Delivery: None, Apgar1: None, Apgar5: None, Living: None, Comments: None Referring Provider: SELF [200] Allergies As of Date: 05/03/2018 (No Known Allergies) Date Reviewed: 05/03/2018 Reviewed by: Nereida Romero RN - Fully Assessed Reason for Visit: Care [86] Cmt: Pre-New OB Primary Visit Diagnosis: with care elsewhere, antepartum [Z34.90] Other Visit Diagnoses:Encounter for anatomic survey [Z36.89] History of depression [Z87.59, Z86.59] Order(s):OBSTETRIC ULTRASOUND [facility] [[id number]] Order #: [id number]: 1 Prescriptions as of 05/03/2018 Sig: VITAMIN,CALCIUM,MINE* Take 1 tablet by mouth. X SERTRALINE 50 MG TABLET Take 1 tablet by mouth once d* Patient not taking: Reported on 05/03/2018 X COMPOUNDED PRESCRIPTION Using excedrin as needed Problem List As Of Date 05/03/2018 Noted Resolved Mononucleosis [B27.90] INVALID FOR*09/10/2013 Depression [F32.9] INVALID FOR* with care elsewhere, antepar*INVALID FOR* More... History of depression [Z87.59, Z86.5*INVALID FOR* More... Other instructions from your clinician: SEQUENTIAL SCREENINGS The [facility] offers sequential screenings for women who are interested in screenings for chromosomal abnormalities and certain defects during a . The sequential screen combines ultrasound and blood tests to determine the risk of chromosomal abnormalities, including Down's Syndrome (Trisomy 21) and Trisomy 18, as well as open neural tube defects including spina bifida. Ultrasound examination is performed between 11 weeks and 13 weeks gestational age. Blood tests are drawn after the ultrasound and again later in the between 15 and 21 weeks gestational age. Please let your physician know if you are interested in this testing. It will require an appointment with our donor center technician. This is not an ultrasound performed by a physician in our office during a routine visit. SIGNS AND SYMPTOMS OF LABOR 1. Contractions every 10 minutes or more often 2. Clear, pink, or brownish fluid (water) leaking from vagina 3. Feeling that baby is pushing down, pressure 4. Low, dull backache 5. Cramps that feel like a period 6. Cramps with or without diarrhea If you notice any of the above symptoms, contact our office at [phone] and ask to speak with a nurse. After hours, you can call doctors registry at [phone] OR call [facility] at [phone] and ask to have the doctor flooring professional paged. If you consider this an emergency, dial 9-1-1 or go to your nearest emergency department. Cord-Blood Banking Up until recently, the umbilical cord--along with the blood that remained in it after a baby was born and the cord cut--was simply discarded by the hospital. Then, in the late 1980s, researchers discovered that cord blood possessed unusual properties that made it useful in the treatment of patients with some cancers and other illnesses. While the actual process of collecting cord blood is straightforward, many parents are not even aware that this option now exists, much less familiar with all the issues involved. The case for saving your baby's cord blood The blood running back and forth between your baby and the placenta is full of immature cells called stem cells. Unlike embryonic stem cells, which have the ability to develop into any type of body cell, cord-blood stem cells already are locked into a certain, vital function: making all the different components of the blood, such as platelets, white blood cells, and red blood cells-serving, in effect, like bone marrow. When transfused into a patient whose own blood cells have faulty genetic coding or have been destroyed by chemotherapy or other cancer treatments, the cord-blood cells can implant themselves in the bone marrow and generate legions of new, healthy cells. These days, cord-blood transplants most commonly are used in cancer patients when a donor can't be found for a bone-marrow transplant. The treatment is particularly effective in young patients- the [facility] Cord Blood [facility] reports a 70 percent success rate in children, but only 20 to 40 percent in adults. Researchers envision improving those odds and see many future applications as well, such as curing sickle cell disease and other blood-related genetic illnesses. So there is a possibility that your child, or someone else, may need these super-healthy and versatile cells one day. The drawbacks Aside from not knowing about this medical option, the main reason most people do not save their baby's stem cells is cost. In a private blood bank, the initial costs run from $275 to $1,500. Most also charge a yearly storage fee of $50 to $95. The advantage of using a private bank is that your sample is saved for only you to use. An alternative to private banking Public cord-blood arteaga are an alternative. These cost no money to use, but your sample is not specifically saved for you. Another person with a more immediate need may use it. If the time should come that you need stem cells, yours may still be available, or you may use donations from other people without charge. You also can direct your sample to go to a relative with an immediate need if the blood type matches. Anyone else needing to use stem cells from a public bank who has not been a donor must pay for it, sometimes tens of thousands of dollars. Will my family benefit from saving stem cells? Right now, situations in which stem cells would be helpful are quite rare. As mentioned earlier, stem-cell transplants are most commonly used for rare genetic conditions and for some types of cancer, including leukemia and lymphoma. And even with these present uses, many questions remain. In cancer treatment, for example, some researchers are concerned about the wisdom of transplanting back into the child the same cells that already showed a propensity to become malignant. Doctors also aren't sure if the number of cells taken at the time of would be enough to treat a full-grown 16-year-old. It is also not completely clear how active the cells would be after years of being stored. The treatment is so new and rare, we just don't have the data yet to resolve these important issues. What do the experts say? The [employer] encourages philanthropic blood banking in public arteaga, but only for families with a current or potential need. Blood-bank proponents encourage any kind of banking, pointing out that research is getting closer and closer to many diverse, live-saving applications. How do I decide? Each family must weigh the pros and cons for themselves. Some families say that any cost is worth their peace of mind. Others say that in the face of uncertainty about the effectiveness of the treatment, they will use their resources elsewhere. Some choose the middle ground of donating publicly, knowing that their sample might benefit another family, if not themselves. For more information, ask your doctor or nurse, and be sure to check out our article on the technical aspects of cord-blood banking. Technical Aspects of Cord-Blood Banking If you are interested in storing your baby's umbilical- cord blood because of its possible use in emerging medical treatments, you must make arrangements with a blood bank before your child is born. The collection procedure is quite simple: After delivery of the baby, the umbilical cord is clamped and cut in the usual way. The blood that remains in the umbilical-cord vessels is then collected in sterile containers. The blood may be removed from the cord with a large needle or allowed to flow freely, depending on the company's collection system. The containers may look like large test tubes or like the plastic bags used in a blood bank. It does not cause the mother or the baby any pain to collect the blood, and no blood is taken that the baby needs at the moment. The nurse, blood or blood bank technician, or physician will then label the samples, check them over with you, and package them for a special pickup arranged with a commercial carrier. When the blood arrives at the blood- bank facility, it is processed and the parents are notified. It is then kept in an advanced storage system for years. How do I know that my sample is safe? Power outages and bankruptcies potentially could threaten any organization, but so far none have been reported. It is to be hoped that the scientists in these arteaga would arrange for safe transfer to another facility if the need arose. YOU MUST MAKE ARRANGEMENTS AHEAD OF TIME! Public cord-blood arteaga--DONATION: [employer] [phone] [facility]'s Placental Blood Program, [facility] Umbilical Cord Blood Bank, Private cord-blood arteaga--SAVING FOR YOUR OWN USE: [employer], (I think this is the least expensive) [employer] [phone] [employer], [phone] [employer] [place] [facility], [phone], [phone] [place] [facility], Cord Blood Registry, (187) [employer], An Internet search may provide you with additional listings. Disposition: Return in 5 days (on 05/08/2018) for New OB with Rodolfo Diallo. Follow-up and Disposition History Recorded Letter Text Dear Lance Barraza: How to activate your [facility] H?REL Account 1. Visit the H?REL Signup page at [email or web address] 2. Identify yourself using your one-time use activation code: Not generated 3. Follow the on-screen prompts to choose your own secure username and password The following information will be necessary to access your account for the first time: Information needed for sign-up: Your custom activation code used one-time only for the initial account set-up. Your date of The last 4 digits of your social security number What to do next: Fill in the requested information on the Identify Yourself Form at [email or web address] , click Next. Create your login and password, choose a H?REL ID and password that will be easy for you to use, but impossible for anyone else to guess. Pick a security question that will assist you in the event you forget your password the next time you log-on. If you have difficulty activating your account, please call our H?REL helpline at [phone] or toll free at . We hope you enjoy using H?REL! Kindest Regards, [facility] MyChart Team Encounter Status:Closed by NEREIDA ROMERO RN on 05/03/18 ALLERGIES ALLERGIES DATE TYPE / CODE NAME / CODE REACTION SEVERITY SOURCE 09/20/2018 Drug No Known Unknown [facility] Allergy/416 Allergies/A19481 Hospital 890508(SNOM 0388(RXNORM) Repository ED CT) Drug NO KNOWN [facility] Class/24433 ALLERGIES [place] 1003(SNOMED Repository CT) ENCOUNTERS ENCOUNTERS ADMIT/DISCHARGE ACCOUNT ADMITTING ENCOUNTER LOCATION SOURCE NUMBER CLASS 09/20/2018/09/21/19 [id number] Sandeep Fisher Inpatient [address] ing:WPRoom: Repository [id number]: 1 09/19/2018/09/20/19 [id number] Ambulatory [address] [place] Repository 09/15/2018 [id number] 09/13/2018/09/14/19 [id number] Ambulatory [address] [place] Repository 09/07/2018/09/10/19 [id number] Ambulatory [address] [place] Repository 08/29/2018/08/31/20 [id number] [place] [facility] [place] Repository 08/21/2018/08/22/20 [id number] [place] [place] [facility] [place] Repository 08/06/2018/08/07/20 [id number] [facility] [place] [facility] [place] Repository 07/23/2018/07/23/20 [id number] [facility] [place] [facility] [place] Repository 07/23/2018/07/24/20 [id number] [facility] [place] [facility] [place] Repository 07/09/2018/07/10/20 [id number] [facility] [place] [facility] [place] Repository 06/26/2018/06/27/20 [id number] [facility] [place] [facility] [place] Repository 06/11/2018/06/11/20 [id number] [facility] [place] [facility] [place] Repository 06/11/2018/06/12/20 [id number] Ambulatory [address] Repository 05/22/2018/05/23/20 [id number] Ambulatory [address] Repository 05/09/2018/05/11/20 [id number] Ambulatory [address] Repository 05/08/2018/05/31/20 [id number] Ambulatory [address] Repository 05/03/2018/05/03/20 [id number] Ambulatory [address] Repository PAYERS PAYERS ENCOUNTER GUARANTOR PAYER SUBSCRIBER SOURCE 09/20/2018 LANCE VILLAR Primary LANCE MARIE Adan [id number] Insurance:CHRISTINA EASTMANB: [id number] Number: [place]ository [place] [id number]: (330) Date:[phone] (HP) [address], [place] [address]QI: 09/20/2018 Secondary NOT GIVENUNK [place] Insurance:SELF PAY [facility] Number: Effective Repository Date:2018-09-20 09/15/2018 LANCE Arellano [id number] Insurance:CHRISTINA EASTMANIsaiah: [facility] [id number] Number: [place]ository [place] [id number]: ([phone]) Date:[phone] (HP) [address], [place] [address]TN: 09/15/2018 Secondary NOT GIVENUNK [place] Insurance:SELF PAY [facility] Number: Effective Repository Date:2018-08-08
== END 2018-09-21 16:30 | disposition home or self-care (01) | DRG 560 ==
LOC: WPOUT 07:32
PROVIDERS: Obstetrics & Gynecology; Admitting Provider Obstetrics & Gynecology; Referring Provider Obstetrics & Gynecology; Visit Provider Obstetrics & Gynecology
DX: O69.1XX0 Labor and delivery complicated by cord around neck, with compression, not applicable or unspecified (principal); O99.02 Anemia complicating childbirth; D64.9 Anemia, unspecified; Z3A.40 40 weeks gestation of pregnancy; Z37.0 Single live birth
CPT/HCPCS: 59025; 59050; 85027; 86850; 86900; 99218; J7120; G0378; J2405